=== PATIENT | female | born 1945 | race Caucasian/White ===

== ENCOUNTER → 2017-12-15 | Day surgery (SDC) | payer BC ==
[2017-12-11 11:03] VITALS: Ht 151.1 cm; Wt 56.8 kg
[~2017-12-15] VITALS: Ht 151.1 cm; Wt 56.8 kg
[~2017-12-15] MED LIST: 500ML BSS 0.3ML EPI 1:1000PF IRRIG ONE; ACETAMINOPHEN 325 MG TAB PO PRN; AMVISC PLUS 0.8ML SYRINGE INT OCU ONE; ATROPINE SULFATE 0.1 MG/ML 5ML SYR IV PRN; BSS FLUSH ONE; CALCTAB7 PO; EpHEDrine SULFATE INJ 50 MG/ML AMP IV PRN; EpINEphrine INJ 1MG/ML AMP 1 MG/ML AMP ONE; FLUO10CA48 PO; FSMD/70 PO; LACTATED RINGER'S 1000ML 500 ML IV SCH; LIDOCAINE 3.5% OPH GEL PER APPLICATION CHARGE ONE; LIDOCAINE HCL 1% MPF 2 ML VIAL ONE; MIDAZOLAM HCL 1 MG/ML 2ML VIAL ONE; MULT-506 PO; NAPR550T61 PO; OCUCOAT 1 ML SOLN IO ONE; POVIDONE-IODINE OP SOLN 30 ML BTL ONE; PROPARACAINE 0.5% OP SOLN PER DROP CHARGE OPR SCH; SIMV40TA2 PO; TOBRAMYCIN/DEXAMETHASONE OPH OINT PER APPLN CHARGE ONE
[2017-12-15] MEDS: PHENYLEPHRINE HCL 2.5% OP SOLN PER DROP CHARGE OPR SCH ×2 (09:25→09:34)
[2017-12-15] MEDS: TROPICAMIDE 1% OP SOLN PER DROP CHARGE OPR SCH ×2 (09:26→09:35)
[2017-12-15] MEDS: CYCLOPENTOLATE HCL 1% OP SOLN PER DROP CHARGE OPR SCH ×2 (09:27→09:36)
[2017-12-15] MEDS: KETOROLAC 0.5% OP SOLN PER DROP CHARGE OPR SCH ×2 (09:28→09:37)
[2017-12-15] MEDS: GATIFLOXACIN OP SOLN PER DROP CHARGE OPR SCH ×2 (09:30→09:42)
--- NOTE | 2017-12-15 09:45 | History & Physical Bridge - [place] ---
H&P Re-Evaluation Bridge Note: I have examined the patient, reviewed the History & Physical and in the interval since the performance of the History & Physical I have noted the following changes of clinical significance: Diagnosis: Right Cataract Procedure: Right Cataract Removal with Lens Implant No changes noted
--- NOTE | 2017-12-15 10:23 | [facility] Operative Report ---
Operative Report Date of Service Dec 15, 2017. Operative Report 1. PREOPERATIVE DIAGNOSIS: Cataract of the right eye. 2. POSTOPERATIVE DIAGNOSIS: Same. 3. PROCEDURE: Phacoemulsification with intraocular lens implantation of the right eye. SURGEON: Dr. Jose Jay. ANESTHESIA: Topical Lidocaine gel, 1% Non- Preserved intracameral Lidocaine, and monitored intravenous sedation. INDICATIONS FOR THE PROCEDURE: The patient is a 71 - year-old female with a history of cataract of the right eye causing significant visual impairment. The details of the proposed procedure were explained to the patient who asked appropriate questions and following discussion of all risks, benefits and alternatives agreed to have the procedure done. 4. OPERATION AND FINDINGS: DESCRIPTION OF PROCEDURE: After informed consent was obtained, the patient was brought to the Operating Room at the [facility]. The patient was placed in a supine position and then the right eye was prepped and draped in the usual sterile fashion for intraocular surgery. A drop of topical Lidocaine gel was placed in the operative eye. A wire lid speculum was then placed in the fornices. A corneal paracentesis was then created temporally. The Non-Preserved Lidocaine was then instilled into the anterior chamber. The anterior chamber was then pressurized with viscoelastic. A 2.0 mm clear corneal incision was then created temporally. A cystotome was inserted into the anterior chamber and used to create a tear in the anterior lens capsule. This capsular tear was then used to create a small flap and the flap was dragged in a counterclockwise direction in order to create a continuous curvilinear capsulorrhexis. Hydrodissection was accomplished with balanced salt solution. Phacoemulsification of the lens nucleus was then performed in a standard [id number] technique. The phaco time was 16 seconds with an average power of 13 %. The remaining cortical material was removed using irrigation aspiration. The capsular bag was then filled with viscoelastic. A [employer] MI60L +19.5 diopters lens was then loaded into the injector and injected into the capsular bag. The remaining viscoelastic was removed with the irrigation aspiration handpiece. The wound was hydrated and then checked and found to be watertight. The intraocular pressure was checked and found to be adequate. The wire lid speculum was removed and the patient's face was cleaned and dried. TobraDex ointment was placed in the inferior fornix. The patient was discharged to the Recovery Room having tolerated the procedure well. There were no complications. The patient will be seen tomorrow in the office for follow-up. I attest to the content of the Intraoperative Record and any orders documented therein. Any exceptions are noted below.
--- NOTE | 2017-12-15 10:23 | Discharge Instructions-SurgCtr ---
Discharge Instructions Date of Service Dec 15, 2017. Visit Reason for Visit: Cataract Right Eye Discharge Discharge Diagnosis / Problem: cataract Discharge Goals Goal(s): Improve function Activity Recommendations Activity Limitations: per Instructions/Follow-up section Anesthesia . Post Anesthesia Instructions: If you have had General Anesthesia or IV Sedation: * Do not drive today. * Resume driving when surgeon permits. * Do not make important decisions or sign legal documents today. * Call surgeon for: 1. Temperature elevations greater than 101 degrees F. 2. Uncontrollable pain. 3. Excessive bleeding. 4. Persistent nausea and vomiting. 5. Medication intolerance (nausea, vomiting or rash). * For nausea and vomiting use only clear liquids such as: tea, soda, bouillon until nausea subsides, then gradually increase diet as tolerated. * If you have any concerns or questions, call your surgeon's office. If physician is unavailable and it is an emergency, call 911 or go to the nearest emergency room. . Diet Recommendations Home Diet: resume previous diet Procedures Procedures Performed: Right Cataract Phacoemulsification With Intraocular Lens Implant Pending Studies Studies pending at discharge: no Medical Emergencies . Who to Call and When: Medical Emergencies: If at any time you feel your situation is an emergency, please call 911 immediately. . Non-Emergent Contact Non-Emergency issues call your: [facility] . . "Provider Documentation" section prepared by Jose Jay. .
[2017-12-15 10:33] VITALS: TEMP 36
[2017-12-15 10:44] VITALS: BP 126/73; PULSE 72; O2SAT 94
--- NOTE | 2017-12-15 10:55 | Anesthesia Progress Nt - [facility] ---
Anesthesia Post Op Note Date & Time Dec 15, 2017 at 10:54 Vital Signs Pain Intensity: 0 Vital Signs Past 12 Hours Date Time Temp Pulse Resp B/P (MAP) Pulse Ox O2 Delivery O2 Flow Rate FiO2 12/15/17 10:44 72 18 126/73 (90) 94 Room Air 12/15/17 10:33 36 69 16 111/73 (86) 94 Room Air 12/15/17 08:58 36.7 73 16 137/79 (98) 95 Room Air Notes Mental Status: alert / awake / arousable, participated in evaluation Pt Amnestic to Procedure: Yes Nausea / Vomiting: adequately controlled Pain: adequately controlled Airway Patency, RR, SpO2: stable & adequate BP & HR: stable & adequate Hydration State: stable & adequate Anesthetic Complications: no major complications apparent
== END | disposition home or self-care (01) ==
LOC: X.SURG 08:39
PROVIDERS: ATTEND Ophthalmology
DX: H26.9 Unspecified cataract (principal); Z79.899 Other long term (current) drug therapy; M19.90 Unspecified osteoarthritis, unspecified site

== ENCOUNTER 2018-09-13 04:54 | Inpatient (IN) ==
--- NOTE | 2018-09-02 09:32 | PAT Medication Instructions ---
Medication Instructions Date of Service September 02, 2018 Home Medications alendronate 70 mg PO WK calcium carbonate-vitamin D3 1 tab PO QAM fexofenadine [Rita Allergy] 180 mg PO QAM fluoxetine 10 mg PO QAM multivitamin 1 cap PO QAM naproxen sodium 550 mg PO QAM simvastatin 40 mg PO PM Continue as directed alendronate 70 mg PO WK ASK your surgeon for instructions naproxen sodium 550 mg PO QAM DO NOT take the morning of surgery calcium carbonate-vitamin D3 1 tab PO QAM fexofenadine [Rita Allergy] 180 mg PO QAM multivitamin 1 cap PO QAM Take morning of surgery With a small sip of water, OTHERWISE NOTHING TO EAT OR DRINK AFTER MIDNIGHT: fluoxetine 10 mg PO QAM Take evening before surgery simvastatin 40 mg PO PM Insulin Dependent Diabetic Patients * Test your blood sugar the morning of surgery * If Blood Sugar is GREATER THAN 150, take HALF of your regular dose of: * If Blood Sugar is LESS THAN 150, DO NOT TAKE ANY: Other Notes If you have any questions please call us at [phone] or [phone] or [phone] or [phone]
--- NOTE | 2018-09-02 10:52 | Anesthesiology Consultation ---
Date of Service September 02, 2018 Assessment & Plan (1) Encounter for pre-operative examination: Chart Review Chart Review: Patient seen in Pre Admission Testing Consults Requested medical (Dr. Adela Garcia (08/27)) Patient was seen by PCP on 08/27 for preoperative evaluation. Per note from that visit, "Patient is medically cleared pending PAT EKG, labs 09/02/2018". Labs and EKG from this visit are normal. Teaching & Discussion Pre-Anesthesia Teaching/Discussion Notes: Instructed NPO after midnight before surgery, except medications with 15 cc of water. Medication instructions provided according to the PAT guidelines. History Surgery Operation Date: 09/13/18 07:00 Proposed Procedures p Right Anterior Total Hip Arthroplasty - Raoul Taylor, Height/Weight Height: 4 ft 11 in Weight: 55.6 kg Allergies Allergy/AdvReac Type Severity Reaction Status Date / Time No Known Allergies Allergy Verified 08/27/18 13:45 Medications Home Medications Medication Instructions Recorded Confirmed Last Taken alendronate 70 mg PO WK 08/27/18 08/27/18 Unknown calcium carbonate-vitamin D3 1 tab PO QAM 08/27/18 08/27/18 Unknown [Calcium 500 + D] fexofenadine [Rita Allergy] 180 mg PO QAM 08/27/18 08/27/18 Unknown fluoxetine 10 mg PO QAM 08/27/18 08/27/18 Unknown multivitamin 1 cap PO QAM 08/27/18 08/27/18 Unknown naproxen sodium 550 mg PO QAM 08/27/18 08/27/18 Unknown simvastatin 40 mg PO PM 08/27/18 08/27/18 Unknown Past Medical History Medical History Anxiety Depression History of skin cancer Basal Cell - Lip Hyperlipidemia Osteoarthritis Prediabetes Exercise / Class Metabolic Activity III < 4 Walking/Shop/Light housework (Limited due to hip pain. Can slowly climb FOS 5-6 times per day, denies CP or SOB. ) Past Surgical History Surgical History History of carpal tunnel release RT History of cataract extraction with lens replacement B/L History of colonoscopy Hx of hemorrhoidectomy Past Anesthesia History No Hx of Anesthesia Complications and No Family Hx of Anesthesia Complications History of PONV No Hx of PONV and No Hx of Motion Sickness Social History Smoking Status: Never smoker Smoking cigarettes per day: 0 Do You Dip or Chew Tobacco: No Hx Alcohol Use: No Alcohol Intake Frequency Comment: 0 Hx Substance Use: No substance use type: does not use Review of Systems Patient denies chest pain, shortness of breath, dyspnea on exertion, reflux, cough, wheezing, palpitations. +Joint Pain (Hip, Neck) Physical Exam Vital Signs BP: 137/79 P: 70 R: 18 T: 97.9 SPO2: 95% on RA ENMT Thyromental Distance: < 3.5 Finger Breadths (3) Mallampati Class: I Neck normal visual inspection and trachea midline; neck extension not limited Respiratory normal respiratory effort Auscultation: lungs clear to auscultation bilaterally Cardiovascular Rate/Rhythm: regular rate and regular rhythm Heart Sounds: no murmur Vessels: no carotid bruit Neurologic moves all extremities Psychiatric Orientation: alert and oriented x 3 Testing Electrocardiogram Date: 09/02/18 Findings: + NSR @ (68) Sinus rhythm with premature atrial complexes Chest X-Ray Date: 09/02/18 Findings: + NAD FINDINGS: The bones soft tissues and hemidiaphragms are normal. The cardiomediastinal silhouette is normal. The lungs are clear. The pulmonary vasculature is normal. IMPRESSION: Negative chest. Echocardiogram Date: 08/08/15 EF: 60-64% LV Function: normal RWMA: + none Valvular Disease: + MR (mild) The examination is adequate to evaluate the referral indication. The left ventricular cavity size is normal. The LV wall thickness is normal. There is isolated basal septal hypertrophy with maximal thickness of 1.4 cm. The left ventricular wall motion is normal. The qualitative LV EF is 60-64% The mitral valve leaflets thickness is mildly increased. There is mild systolic bowing of the posterior mitral valve leaflet without prolapse. Mild mitral regurgitation is present. Mild tricuspid regurgitation is present. There is no evidence of pulmonary hypertension. Laboratory Results 09/02/18 11:15 09/02/18 11:15 Blood Type B Negative 09/02/18 11:15 Antibody Screen NEGATIVE 09/02/18 11:15 PT 10.4 Seconds (9.0-12.0) 09/02/18 11:15 INR 1.0 (0.9-1.1) 09/02/18 11:15 APTT 25.1 Seconds (21.0-31.0) 09/02/18 11:15 Hemoglobin A1c 5.9 % (4.5-5.6) H 09/02/18 11:15 Urine Color Yellow 09/02/18 Unknown Urine Appearance Clear (Clear) 09/02/18 Unknown Urine pH 5.0 (4.5-7.5) 09/02/18 Unknown Ur Specific [place] 1.017 (1.000-1.030) 09/02/18 Unknown Urine Protein Negative (Negative) 09/02/18 Unknown Urine Glucose (UA) Negative (Negative) 09/02/18 Unknown Urine Ketones Negative (Negative) 09/02/18 Unknown Urine Nitrite Negative (Negative) 09/02/18 Unknown Ur Leukocyte Esterase Negative (Negative) 09/02/18 Unknown 09/02/18 Unknown Urine Culture - Preliminary Urine,Clean Catch No growth - Less than 1,000 colonies/mL, Final report to follow.
[2018-09-02 11:53] LABS: Basophils # (auto) 0.05 K/uL (0-0.2); Basophils % (auto) 0.7 %; Eosinophils # (auto) 0.18 K/uL (0-0.5); Eosinophils % (auto) 2.4 %; Hematocrit (blood only) 44.2 % (37-47); Immature Granulocytes # (auto) 0.01 K/uL (0.00-0.02); Immature Granulocytes % (auto) 0.1 %; Lymphocytes # (auto) 1.77 K/uL (1.2-3.4); Lymphocytes % (auto) 23.1 %; Mean Corpuscular Hgb Conc 33.9 g/dL (32-36); Mean Corpuscular Volume 94.4 fL (80-100); Mean Platelet Volume 12.6 fL (7.4-10.4); Monocytes # (auto) 0.43 K/uL (0.11-0.59); Monocytes % (auto) 5.6 %; Neutrophils # (auto) 5.21 K/uL (1.4-6.5); Neutrophils % (auto) 68.1 %; Platelet Count 178 K/uL (130-400); RDW Standard Deviation 44.7 fL (36.4-46.3); Red Blood Count 4.68 M/uL (4.2-5.4); White Blood Count 7.65 K/uL (4.8-10.8)
[2018-09-02 12:22] LABS: Appearance Urine Clear (Clear); Bilirubin Urine Negative (Negative); Blood Urine Negative (Negative); Color Urine Yellow; Glucose Urine UA Negative (Negative); Ketones Urine Negative (Negative); Leukocyte Esterase Urine Negative (Negative); Nitrite Urine Negative (Negative); Protein Urine Negative (Negative); Specific Gravity Urine 1.017 (1.000-1.030); Urobilinogen Urine Negative (Negative)
[2018-09-02 12:25] LABS: Partial Thromboplastin Ratio 0.9; Partial Thromboplastin Time 25.1 Seconds (21.0-31.0); Prothrombin Time 10.4 Seconds (9.0-12.0)
--- NOTE | 2018-09-02 12:31 | XRay Report ---
XR chest Pre-admission PA/Lat CLINICAL HISTORY: pat preoperative COMPARISON STUDY: No previous studies for comparison. FINDINGS: The bones soft tissues and hemidiaphragms are normal. The cardiomediastinal silhouette is n ormal. The lungs are clear. The pulmonary vasculature is normal. IMPRESSION: Negative chest. The above report was generated using voice recognition software. It may contain grammatical, syntax or spelling errors. Electronically signed by: Isaías Rowland M.D. 09/02/2018 12:29 PM
[2018-09-02 12:46] LABS: Estimated Average Glucose 123 mg/dl; Hemoglobin A1C 5.9 % (4.5-5.6)
[2018-09-02 13:11] LABS: Albumin Level 2.9 gm/dl (3.4-5.0); BUN Creatinine Ratio 27.3 (10-20); Calcium 8.7 mg/dl (8.5-10.1); Est GFR (Non-African American) 78.5; Potassium 4.4 mmol/L (3.5-5.1)
--- NOTE | 2018-09-12 22:21 | History & Physical Report ---
Date of Service September 12, 2018 Assessment & Plan (1) Degenerative joint disease (DJD) of hip: I have indicated the patient for right anterior total hip replacement. The risks, benefits and complications of surgery were explained to the patient which include but not limited to infection, acute blood loss, DVT/PE, injury to nerves, vessels, bone, soft tissue, arthrofibrosis, chronic pain, failure of the prosthesis, hip dislocation, leg length discrepancy, need for additional surgery, cardiac and pulmonary events and . The patient wished to proceed with surgery and informed consent was obtained at this time. We will plan for ASA BID post-operatively for DVT prophylaxis. Upon discharge the patient will be discharged home with home health services. Appropriate clearances by PCP were obtained. History of Present Illness Chief Complaint: Right hip pain/djd Primary Care Provider: Haily Garcia DO The patient is a 72 year old female who presents with complaints of severe right hip pain and DJD. The patient has failed outpatient conservative treatments to this point which included NSAIDS, IA corticosteroid injection and a home exercise/walking program. The patient's pain and limited function have progressed to the point where they severely hinder their activities of daily living and they no longer tolerate exercise programs. They are requesting to proceed with total hip replacement surgery. Allergies Allergy/AdvReac Type Severity Reaction Status Date / Time No Known Allergies Allergy Verified 09/13/18 05:50 Home Medications Home Medications Medication Instructions Recorded Confirmed Type alendronate 70 mg PO WK 08/27/18 09/13/18 History calcium carbonate-vitamin D3 1 tab PO QAM 08/27/18 09/13/18 History [Calcium 500 + D] fexofenadine [Rita Allergy] 180 mg PO QAM 08/27/18 09/13/18 History fluoxetine 10 mg PO QAM 08/27/18 09/13/18 History multivitamin 1 cap PO QAM 08/27/18 09/13/18 History naproxen sodium 550 mg PO QAM 08/27/18 09/13/18 History simvastatin 40 mg PO PM 08/27/18 09/13/18 History Past Med/Surg History Medical History Anxiety Depression History of skin cancer Basal Cell - Lip Hyperlipidemia Osteoarthritis Prediabetes Surgical History History of carpal tunnel release RT History of cataract extraction with lens replacement B/L History of colonoscopy Hx of hemorrhoidectomy Social History Preferred Language: Frisian Communication Ability: Effective Sdc Teacher Required: No Beliefs That Will Affect Care: None Current Living Situation: Spouse Other Information That Helps Us Care for You: No Feels Safe at Home: Yes Safety Concerns: Feels Safe At This Time Smoking Status: Never smoker Cigarettes Per Day: 0 Do You Dip or Chew Tobacco: No Second Hand Exposure: No Tobacco Cessation Education Requested by Patient: No Hx Alcohol Use: No Hx Substance Use: No Review of Systems Review of Systems: All systems reviewed & are unremarkable except as noted in HPI & below Constitutional: as per Subjective / HPI Physical Exam Physical Exam: RLE NVSI +EHL/FHL/TA/GS SILT grossly, +2 DP pulse, compartments soft NT, limited painful ROM of the hip, antalgic gait. Constitutional: WD/WN, vitals as above Eyes: PERRL, conjunctivae normal, anicteric sclerae ENMT: external ear and nose normal, oropharynx normal Neck: trachea midline, no thyromegaly Respiratory: normal respiratory effort, lungs clear to auscultation Cardiovascular: RRR, no murmur, no edema Gastrointestinal (Abdomen): normal bowel sounds, soft, nontender, no hepatosplenomegaly Musculoskeletal: no cyanosis or clubbing, extremities motor strength 5/5 Skin: no rashes, warm and dry Neurologic: patellar DTR's 2+ bilat, sensation intact Psychiatric: A+Ox3, euthymic affect Lymphatic: no cervical or axillary lymphadenopathy Results & Data Diagnostic Findings Multiple views of the hip demonstrates severe DJD with complete loss of the joint space. +osteophytes, +sclerosis, +subchondral cysts.
[2018-09-13] MEDS ORDERED: ACETAMINOPHEN 500 MG TAB PO SCH (06:00)
[2018-09-13] MEDS ORDERED: ROPIVACAINE 0.5% HCL/PF 150 MG, BUPIVACAINE 0.5% MPF 30 ML, EPINEPHrine 30MG/30ML (OR U... INFIL SCH (06:00)
[2018-09-13] MEDS ORDERED: GABAPENTIN 300 MG PO SCH (06:00)
[2018-09-13] MEDS ORDERED: TRANEXAMIC ACID 1,000 MG **IV Pre-op IV SCH (06:00)
[2018-09-13] MEDS ORDERED: dexAMETHasone 4 MG TAB PO SCH (06:00)
[2018-09-13] MEDS ORDERED: LR 500ML BOLUS, THEN 15ML/HR IV SCH (06:00)
[2018-09-13] MEDS ORDERED: FAMOTIDINE 20 MG TAB PO SCH (06:00)
[2018-09-13] MEDS ORDERED: CEFAZOLIN 1000MG 1,000 MG/7.5 ML SYR IV SCH (06:00)
[2018-09-13] MEDS ORDERED: CeleBREX 200 MG CAP PO SCH (06:00)
[2018-09-13] MEDS ORDERED: BUPIVACAINE 0.5 % 5 MG/1 ML PF 10ML VIAL ONE (06:23)
[2018-09-13] MEDS ORDERED: TRANEXAMIC ACID 1,000 MG **IV Intra-op IV SCH (06:30)
[2018-09-13] MEDS ORDERED: fentaNYL citrate 100 MCG/2 ML VIAL IV PRN (06:34)
[2018-09-13] MEDS ORDERED: ATROPINE SULFATE 0.1 MG/ML 10ML SYR IV PRN (06:34)
[2018-09-13] MEDS ORDERED: ePHEDrine sulfate 50 MG/ML AMP IV PRN (06:34)
[2018-09-13] MEDS ORDERED: ONDANSETRON INJ 2 MG/ML 2 ML VIAL IV PRN ×2 (06:34→10:18)
[2018-09-13] MEDS ORDERED: POVIDONE-IODINE OP SOLN 30 ML BTL ONE (06:36)
[2018-09-13] MEDS ORDERED: BACITRACIN INJ 50,000 UNIT VIAL ONE (06:36)
[2018-09-13] MEDS ORDERED: ORTHO JOINT ANESTHETIC ONE (06:36)
--- NOTE | 2018-09-13 06:42 | History & Physical Bridge Note ---
Date of Service September 13, 2018 History & Physical Bridge Note I have examined the patient, reviewed the History & Physical and in the interval since the performance of the History & Physical I have noted the following changes of clinical significance: no changes noted
[2018-09-13] MEDS ORDERED: MIDAZOLAM HCL 1 MG/ML 2ML VIAL ONE (06:44)
[2018-09-13] MEDS ORDERED: PROPOFOL IV EMULSION 10 MG/ML 20 ML VIAL IV ONE (08:01)
[2018-09-13] MEDS ORDERED: ePHEDrine sulfate 50 MG/ML SYR ONE (08:03)
[2018-09-13] MEDS ORDERED: PHENYLEPHRINE 100MCG/ML 5ML SYR ONE (08:18)
--- NOTE | 2018-09-13 08:31 | Post Operative Brief Note ---
Immediate Post Op Note v1 Date of Surgery September 13, 2018 Pre & Post Diagnosis Operation Date: 09/13/18 07:00 Pre-Op Diagnosis: Unilateral Primary Osteoarthritis, Right Hip Post-Op Diagnosis: Unilateral Primary Osteoarthritis, Right Hip Procedure Operation Date: 09/13/18 07:00 Actual Procedures p Right Anterior Total Hip Arthroplasty, Uncemented(Right) - Raoul Taylor DO Surgeon Raoul Taylor DO [employer] Officer Aly Fan Estimated Blood Loss 85 Findings Consistent with Post-Op Diagnosis Fluids 1300 cc LR Specimens femoral head Drains Hemovac Drain Anesthesia Type Spinal MAC Complications none Disposition Disposition: Recovery Room Overlapping Procedure I was present for: the critical portions of procedure. I was immediately available: during the entire case. Back up surgeon: was not required during procedure.
--- NOTE | 2018-09-13 08:44 | Operative Report ---
Post Operative Report Pre & Post Diagnosis Operation Date: 09/13/18 07:00 Pre-Op Diagnosis: Unilateral Primary Osteoarthritis, Right Hip Post-Op Diagnosis: Unilateral Primary Osteoarthritis, Right Hip Procedure Operation Date: 09/13/18 07:00 Actual Procedures p Right Anterior Total Hip Arthroplasty, Uncemented(Right) - Raoul Taylor DO Surgeon Raoul Taylor DO Contract Designer Aly Fan Estimated Blood Loss 85 Findings Consistent with Post-Op Diagnosis Specimens Femoral head Anesthesia Type Spinal MAC Complications none Disposition Disposition: Recovery Room Indications The patient is a 72-year-old female who presents with severe progressive right hip DJD who has failed outpatient conservative treatments. I indicated the patient for a anterior total hip replacement and the risks and benefits were explained in detail which include but not limited to infection, bleeding, blood clot, damage to surrounding bone, nerves, vessels, soft tissue, hip dislocation, failure of the prosthesis, leg length discrepancy, need for additional surgery and . The patient agreed to proceed with replacement of the hip and informed consent was obtained. Appropriate clearances were obtained. Description of Procedure COMPONENTS USED: [employer] hip system: Acetabulum size 50, femur size 6 high offset, femoral head 32+0, liner 3250, acetabular screw 251. DESCRIPTION OF PROCEDURE: Following satisfactory spinal anesthesia, the patient was placed supine on the OR table. The left leg was placed in the well leg damon and the right leg in the traction device. The right leg was prepared with ChloraPrep and draped sterilely. A surgical timeout was performed, patient identified in site sabino confirmed. Appropriate antibiotics were given. A standard anterior approach in the interval between the sartorius and tensor muscles was performed. Dissection was carried down through subcutaneous tissues. Electrocautery was utilized for hemostasis. Circumflex femoral ve ssels were identified, tied and ligated. The anterior capsular fat pad was removed and the capsulotomy was performed revealing the arthritic femoral neck and head. A femoral neck cut was made with reciprocating saw and the bone fragments removed. The acetabular self-retraining retractor was placed. Acetabular reaming was completed under fluoroscopic guidance, a 50 shell was impacted into an anatomic position and secured with a dome screw. Local anesthetic was placed and following irrigation, the polyethylene liner was placed. The femur was placed into position of external rotation, extension and adduction. Femoral canal was prepared up to the size 6 high offset. Trial reduction with a +0 neck length head showed good soft tissue tension, leg lengths restored, and good fit and fill of the proximal canal using fluoroscopic landmarks. The hip was dislocated. The trial component was removed. The final implant was placed. The hip was irrigated with sterile saline soluation and reduced. A Betadine soak was performed. After 3 minutes, the hip was once more irrigated with copious sterile saline solution with bacitracin. Cherelle-incisional soft tissue was injected utilizing [place] [employer] which includes a combination of Ropivicaine 0.5% 150mg, Bupivicaine 0.5%/Epinephrine 1:200,000 30ml, Toradol 30mg, Dexamethasone 4mg, Ketamine 10mg, Clonidine 100mcg and NSS 30ml solution. The capsule was then closed with 1-0 Vicryl interrupted figure of eight sutures. The fascia was closed with a running suture of #1 Vicryl, the subcutaneous tissues with 2-0 Vicryl and the skin with a running subcuticular stitch of 3-0 V-Loc. Dermabond prineo and a dry dressing, Danni were applied. The patient tolerated the procedure well and was transported to PACU in stable condition. Due to the complex nature of the procedure, the entire surgery was performed with the operational assistance of Aly Fan PA-C. The drug safety assistant, under direct supervision, was involved in the actual performance of all aspects of the surgical procedure including patient positioning, hemostasis, tissue retraction, instrument management and wound closure. I attest to the content of the Intraoperative Record and any orders documented therein. Any exceptions are noted below.
--- NOTE | 2018-09-13 08:55 | Fluoroscopy Report ---
FL hip RT 1V CLINICAL HISTORY: RT ANTERIOR HIP COMPARISON STUDY: None. FLUOROSCOPY TIME: 46 seconds. FLUOROSCOPIC IMAGES: 2. FINDINGS: These images demonstrate anatomic alignment of a total right hip arthroplasty. There is no fracture or unexpected radiopaque foreign body. Acetabular screw is noted. IMPRESSION: Expected findings following total right hip arthroplasty. Electronically signed by: Fernando Beaver M.D. 09/13/2018 8:54 AM
--- NOTE | 2018-09-13 09:23 | XRay Report ---
XR hip 1V RT w pelvis CLINICAL HISTORY: IN PACU - A/P PELVIS and LATERAL HIP COMPARISON: None. DISCUSSION: Anatomic alignment post total right hip arthroplasty. Good contact between prosthetic and underlying bone. Expected postoperative soft tissue change. IMPRESSION: Anatomic alignment post total right hip arthroplasty. The above report was generated using voice recognition software. It may contain grammatical, syntax or spelling errors. Electronically signed by: Isaías Rowland M.D. 09/13/2018 9:22 AM
--- NOTE | 2018-09-13 09:51 | Anesthesiology Progress Note ---
Date of Service September 13, 2018 Anesthesia Post Procedure Vital Signs Vital Signs: Temp Pulse Pulse Resp BP Pulse Ox 09/13/18 09:45 97.2 F L 69 12 118/66 98 09/13/18 09:35 66 17 124/65 99 09/13/18 09:25 69 18 125/63 98 09/13/18 09:15 65 15 125/67 99 09/13/18 09:05 77 13 97/51 L 99 09/13/18 08:57 97.2 F L 69 17 98/56 L 97 09/13/18 05:40 97.5 F L 72 18 139/72 96 Pain Intensity Right Hip: Pain Intensity: 0 Transfer of Care Handoff Completed per policy Notes Mental Status: alert / awake / arousable and participated in evaluation Patient Amnestic to Procedure: Yes Nausea / Vomiting: adequately controlled Pain: adequately controlled Airway Patency, RR, SpO2: stable & adequate BP & HR: stable & adequate Hydration State: stable & adequate Neuraxial Anesthesia: was administered and sensory block is resolving Anesthetic Complications: no major complications apparent and Pt Satisfied with anesthetic care
[2018-09-13] MEDS ORDERED: MAGNESIUM HYDROXIDE SUSP 30 ML UDC PO PRN (10:18)
[2018-09-13] MEDS ORDERED: NALOXONE HCL 0.4 MG/1 ML VIAL/CARP IV PRN (10:18)
[2018-09-13] MEDS ORDERED: HYDROmorphone INJ 0.5 MG/0.5 ML SYR IV PRN (10:18)
[2018-09-13] MEDS ORDERED: BISACODYL 10 MG SUPP PR PRN (10:18)
[2018-09-13] MEDS ORDERED: METOCLOPRAMIDE HCL INJ 5 MG/ML 2 ML VIAL IV PRN (10:18)
--- NOTE | 2018-09-13 11:59 | Orthopedic Progress Note ---
Date of Service September 13, 2018 Assessment & Plan (1) Degenerative joint disease (DJD) of hip: Status post right anterior total hip arthroplasty -Ancef x24 -DVT prophylaxis: SCDs, teds, ASA twice daily -Weight-bear as tolerated right lower extremity -PT/OT -Postoperative x-ray demonstrates a well aligned well fixed orthopedic prosthesis without evidence of fracture or dislocation -A.m. labs -DC planning: Home with home health Subjective Post Operative Progress Note Patient seen sitting up in bed, comfortable, denies complaints, pain well controlled, no acute issues. Review of Systems Review of Systems: All systems reviewed & are unremarkable except as noted in HPI & below Constitutional: as per Subjective / HPI Physical Exam Physical Exam: Right lower extremity physical exam is limited secondary to spinal anesthesia. +2 dorsalis pedis pulse, compartment soft nontender, dressing clean dry and intact. Constitutional: WD/WN, vitals as above Results & Data Vital Signs (Past 12 Hours) Vital Signs Temp Pulse Pulse Pulse Pulse Resp BP 09/13/18 11:34 36.5 C 78 18 121/66 09/13/18 10:40 77 18 122/76 09/13/18 10:10 36.4 C L 69 16 121/66 09/13/18 09:45 36.2 C L 69 12 118/66 09/13/18 09:35 66 17 124/65 09/13/18 09:25 69 18 125/63 09/13/18 09:15 65 15 125/67 09/13/18 09:05 77 13 97/51 L 09/13/18 08:57 36.2 C L 69 17 98/56 L 09/13/18 05:40 36.4 C L 72 18 139/72 Pulse Ox 09/13/18 11:34 98 09/13/18 10:40 09/13/18 10:10 98 09/13/18 09:45 98 09/13/18 09:35 99 09/13/18 09:25 98 09/13/18 09:15 99 09/13/18 09:05 99 09/13/18 08:57 97 09/13/18 05:40 96
[2018-09-13] MEDS: MULTIVITAMIN TAB PO SCH (12:16)
[2018-09-13] MEDS: FLUOXETINE HCL 10 MG CAP PO SCH (12:16)
[2018-09-13] MEDS: DOCUSATE SODIUM 100 MG CAP PO SCH ×2 (12:16→20:49)
[2018-09-13] MEDS: SODIUM CHLORIDE 0.9% 1000ML 1,000 ML IV SCH ×2 (12:16→21:56)
[2018-09-13] MEDS: KETOROLAC TROMETHAMINE 15 MG/ML VIAL IV SCH ×3 (12:17→22:02)
[2018-09-13] MEDS: CEFAZOLIN 1000MG 1,000 MG/7.5 ML SYR IV SCH ×2 (13:56→21:54)
[2018-09-13] MEDS: ACETAMINOPHEN 500 MG TAB PO SCH ×2 (13:56→20:49)
[2018-09-13] MEDS ORDERED: PNEUMOCOCCAL POLYSACCHARIDES 25 MCG/0.5 ML VIAL/SYR IM ONE (15:00)
[2018-09-13] MEDS ORDERED: PNEUMOCOCCAL ADMINISTRATION CHARGE ONE (15:00)
[2018-09-13] MEDS ORDERED: SIMVASTATIN 40 MG TAB PO SCH (21:00)
[2018-09-13] MEDS ORDERED: SENNA 8.6 MG TAB PO SCH (21:00)
[2018-09-13] MEDS: OXYCODONE HCL IR 5 MG TAB (IMMEDIATE RELEASE) PO PRN (23:56)
[2018-09-14] MEDS: KETOROLAC TROMETHAMINE 15 MG/ML VIAL IV SCH (04:47)
[2018-09-14] MEDS: ACETAMINOPHEN 500 MG TAB PO SCH ×2 (05:32→13:21)
[2018-09-14 05:37] LABS: Basophils # (auto) 0.01 K/uL (0-0.2); Basophils % (auto) 0.1 %; Eosinophils # (auto) 0.02 K/uL (0-0.5); Eosinophils % (auto) 0.1 %; Hematocrit (blood only) 32.5 % (37-47); Hemoglobin 11.2 g/dL (12.0-16.0); Immature Granulocytes # (auto) 0.04 K/uL (0.00-0.02); Immature Granulocytes % (auto) 0.3 %; Lymphocytes # (auto) 1.55 K/uL (1.2-3.4); Lymphocytes % (auto) 10.2 %; Mean Corpuscular Hgb Conc 34.5 g/dL (32-36); Mean Corpuscular Volume 93.1 fL (80-100); Mean Platelet Volume 11.9 fL (7.4-10.4); Monocytes # (auto) 1.29 K/uL (0.11-0.59); Monocytes % (auto) 8.5 %; Neutrophils # (auto) 12.26 K/uL (1.4-6.5); Neutrophils % (auto) 80.8 %; Platelet Count 141 K/uL (130-400); RDW Coefficient of Variation 13.1 % (11.5-14.5); RDW Standard Deviation 44.3 fL (36.4-46.3); Red Blood Count 3.49 M/uL (4.2-5.4); White Blood Count 15.17 K/uL (4.8-10.8)
[2018-09-14 06:16] LABS: Calcium 7.4 mg/dl (8.5-10.1); Creatinine Clr Calc Pharmacy 52.6 ml/min; Est GFR (African American) 95.6; Est GFR (Non-African American) 82.5; Potassium 3.8 mmol/L (3.5-5.1)
[2018-09-14] MEDS ORDERED: ALENDRONATE SODIUM 70 MG TAB PO SCH (06:30)
--- NOTE | 2018-09-14 07:40 | Anesthesiology Progress Note ---
Date of Service September 14, 2018 Anesthesia Post Procedure Vital Signs Vital Signs: Temp Pulse Pulse Pulse Pulse Resp BP 09/14/18 06:55 36.6 C 67 18 130/72 09/14/18 04:05 36.8 C 70 16 124/70 09/13/18 23:25 36.8 C 75 16 120/61 09/13/18 19:25 36.4 C L 90 16 139/73 09/13/18 15:25 36.9 C 88 18 131/66 09/13/18 15:12 36.4 C L 74 18 138/69 09/13/18 12:59 37.0 C 88 18 126/71 09/13/18 11:34 36.5 C 78 18 121/66 09/13/18 10:40 77 18 122/76 09/13/18 10:10 36.4 C L 69 16 121/66 09/13/18 09:45 36.2 C L 69 12 118/66 09/13/18 09:35 66 17 124/65 09/13/18 09:25 69 18 125/63 09/13/18 09:15 65 15 125/67 09/13/18 09:05 77 13 97/51 L 09/13/18 08:57 36.2 C L 69 17 98/56 L Pulse Ox 09/14/18 06:55 97 09/14/18 04:05 94 09/13/18 23:25 93 09/13/18 19:25 93 09/13/18 15:25 93 09/13/18 15:12 93 09/13/18 12:59 95 09/13/18 11:34 98 09/13/18 10:40 09/13/18 10:10 98 09/13/18 09:45 98 09/13/18 09:35 99 09/13/18 09:25 98 09/13/18 09:15 99 09/13/18 09:05 99 09/13/18 08:57 97 Pain Intensity Right Hip: Pain Intensity: 4 Notes Mental Status: alert / awake / arousable and participated in evaluation Patient Amnestic to Procedure: Yes Nausea / Vomiting: adequately controlled Pain: adequately controlled Airway Patency, RR, SpO2: stable & adequate BP & HR: stable & adequate Hydration State: stable & adequate Neuraxial Anesthesia: was administered and sensory block resolved Anesthetic Complications: no major complications apparent and Pt Satisfied with anesthetic care
--- NOTE | 2018-09-14 07:55 | Orthopedic Progress Note ---
Date of Service September 14, 2018 Assessment & Plan (1) Degenerative joint disease (DJD) of hip: Postop day 1 status post right anterior total hip arthroplasty -Ancef x24 -DVT prophylaxis: SCDs, teds, ASA twice daily -Weight-bear as tolerated right lower extremity -PT/OT -A.m. labs as noted above -DC planning: Home with home health Patient seen and examined, agree with above assessment in plan. Subjective Postop day 1 status post right anterior total hip arthroplasty. Patient was ambulating from the bathroom to her chair when I arrived in the room. She is ambulating independently with a walker. She states that she was having pain getting in out of the bed with her incision but otherwise the hip feels good. No pain with ambulation. She denies shortness of breath, chest pain, lightheadedness. No other complaints at this time. Review of Systems Review of Systems: All systems reviewed & are unremarkable except as noted in HPI & below Constitutional: as per Subjective / HPI Physical Exam Physical Exam: Prevena dressing is clean, dry, and intact. No overt drainage noted in the canister. Thigh has some swelling but is soft and nontender. Calves are soft and nontender. Neurovascular is intact. Toes are mobile. RLE NVSI +EHL/FHL/TA/GS SILT grossly, +2 DP pulse, compartments soft NT, dressing cdi. Constitutional: WD/WN, vitals as above Results & Data Vital Signs (Past 12 Hours) Vital Signs Temp Pulse Resp BP Pulse Ox 09/14/18 06:55 36.6 C 67 18 130/72 97 09/14/18 04:05 36.8 C 70 16 124/70 94 09/13/18 23:25 36.8 C 75 16 120/61 93 Laboratory Results Laboratory Results WBC 15.17 K/uL (4.8-10.8) H 09/14/18 05:15 RBC 3.49 M/uL (4.2-5.4) L 09/14/18 05:15 Hgb 11.2 g/dL (12.0-16.0) L 09/14/18 05:15 Hct 32.5 % (37-47) L 09/14/18 05:15 MCV 93.1 fL (80-100) 09/14/18 05:15 MCH 32.1 pg (25-34) 09/14/18 05:15 MCHC 34.5 g/dL (32-36) 09/14/18 05:15 RDW Std Deviation 44.3 fL (36.4-46.3) 09/14/18 05:15 RDW Coeff of Umu 13.1 % (11.5-14.5) 09/14/18 05:15 Plt Count 141 K/uL (130-400) 09/14/18 05:15 MPV 11.9 fL (7.4-10.4) H 09/14/18 05:15 Immature Gran % (Auto) 0.3 % 09/14/18 05:15 Neut % (Auto) 80.8 % 09/14/18 05:15 Lymph % (Auto) 10.2 % 09/14/18 05:15 Avery % (Auto) 8.5 % 09/14/18 05:15 Eos % (Auto) 0.1 % 09/14/18 05:15 Baso % (Auto) 0.1 % 09/14/18 05:15 Immature Gran # (Auto) 0.04 K/uL (0.00-0.02) H 09/14/18 05:15 Neut # (Auto) 12.26 K/uL (1.4-6.5) H 09/14/18 05:15 Lymph # (Auto) 1.55 K/uL (1.2-3.4) 09/14/18 05:15 Avery # (Auto) 1.29 K/uL (0.11-0.59) H 09/14/18 05:15 Eos # (Auto) 0.02 K/uL (0-0.5) 09/14/18 05:15 Baso # (Auto) 0.01 K/uL (0-0.2) 09/14/18 05:15 PT 10.4 Seconds (9.0-12.0) 09/02/18 11:15 INR 1.0 (0.9-1.1) 09/02/18 11:15 APTT 25.1 Seconds (21.0-31.0) 09/02/18 11:15 PTT Ratio 0.9 09/02/18 11:15 Sodium 141 mmol/L (136-145) 09/14/18 05:15 Potassium 3.8 mmol/L (3.5-5.1) 09/14/18 05:15 Chloride 109 mmol/L (98-107) H 09/14/18 05:15 Carbon Dioxide 27 mmol/L (21-32) 09/14/18 05:15 Anion Gap 5.0 (3-11) 09/14/18 05:15 BUN 15 mg/dl (7-18) 09/14/18 05:15 Creatinine 0.72 mg/dl (0.6-1.2) 09/14/18 05:15 Est Cr Clr Drug Dosing 52.6 ml/min 09/14/18 05:15 Est GFR ( Amer) 95.6 09/14/18 05:15 Est GFR (Non-Af Amer) 82.5 09/14/18 05:15 BUN/Creatinine Ratio 21.0 (10-20) H 09/14/18 05:15 Glucose 115 mg/dl (70-99) H 09/14/18 05:15 POC Glucose 121 (70-99) H 09/13/18 09:24 Estimat Average Glucose 123 mg/dl 09/02/18 11:15 Hemoglobin A1c 5.9 % (4.5-5.6) H 09/02/18 11:15 Calcium 7.4 mg/dl (8.5-10.1) L 09/14/18 05:15 Albumin 2.9 gm/dl (3.4-5.0) L 09/02/18 11:15 Urine Color Yellow 09/02/18 Unknown Urine Appearance Clear (Clear) 09/02/18 Unknown Urine pH 5.0 (4.5-7.5) 09/02/18 Unknown Ur Specific [place] 1.017 (1.000-1.030) 09/02/18 Unknown Urine Protein Negative (Negative) 09/02/18 Unknown Urine Glucose (UA) Negative (Negative) 09/02/18 Unknown Urine Ketones Negative (Negative) 09/02/18 Unknown Urine Blood Negative (Negative) 09/02/18 Unknown Urine Nitrite Negative (Negative) 09/02/18 Unknown Urine Bilirubin Negative (Negative) 09/02/18 Unknown Urine Urobilinogen Negative (Negative) 09/02/18 Unknown Ur Leukocyte Esterase Negative (Negative) 09/02/18 Unknown Blood Type B Negative 09/02/18 11:15 Antibody Screen NEGATIVE 09/02/18 11:15
[2018-09-14] MEDS: DOCUSATE SODIUM 100 MG CAP PO SCH (08:36)
[2018-09-14] MEDS: MULTIVITAMIN TAB PO SCH (08:36)
[2018-09-14] MEDS: FLUOXETINE HCL 10 MG CAP PO SCH (08:37)
[2018-09-14] MEDS: OXYCODONE HCL IR 5 MG TAB (IMMEDIATE RELEASE) PO PRN ×2 (08:40→13:21)
[2018-09-14] MEDS ORDERED: ASPIRIN 325 MG ECTAB PO SCH (09:00)
[2018-09-14] MEDS ORDERED: CeleBREX 200 MG CAP PO SCH (21:00)
--- NOTE | 2018-09-14 21:42 | Discharge Summary ---
Date of Service September 14, 2018 Admission HPI Per Admitting Provider The patient is a 72 year old female who presents with complaints of severe right hip pain and DJD. The patient has failed outpatient conservative treatments to this point which included NSAIDS, IA corticosteroid injection and a home exercise/walking program. The patient's pain and limited function have progressed to the point where they severely hinder their activities of daily living and they no longer tolerate exercise programs. They are requesting to proceed with total hip replacement surgery. Principal Diagnosis Right anterior total hip replacement Discharge Exam RLE NVSI +EHL/FHL/TA/GS SILT grossly, +2 DP pulse, compartments soft NT, dressing cdi. Constitutional WD/WN, vitals as above Eyes PERRL, conjunctivae normal, anicteric sclerae ENMT external ear and nose normal, oropharynx normal Neck trachea midline, no thyromegaly Respiratory normal respiratory effort, lungs clear to auscultation Cardiovascular RRR, no murmur, no edema Gastrointestinal (Abdomen) normal bowel sounds, soft, nontender, no hepatosplenomegaly Musculoskeletal no cyanosis or clubbing, extremities motor strength 5/5 Skin no rashes, warm and dry Neurologic patellar DTR's 2+ bilat, sensation intact Psychiatric A+Ox3, euthymic affect Lymphatic no cervical or axillary lymphadenopathy Discharge Data Allergies Allergy/AdvReac Type Severity Reaction Status Date / Time No Known Allergies Allergy Verified 09/13/18 05:50 Consultations 09/14/18 08:00 Consult Case Management - Discharge Planning Routine Procedures Performed Operation Date: 09/13/18 07:00 Actual Procedures p Right Anterior Total Hip Arthroplasty, Uncemented(Right) - Raoul Taylor DO Ordered Studies 09/13/18 07:00 FL fluoroscopy <1hr Routine FL hip RT 1V Routine Hospital Course (1) Degenerative joint disease (DJD) of hip: The patient is a 70 -year-old female who presents with long standing history of severe right hip DJD and failed outpatient conservative treatments including NSAIDs, bracing, injections and home walking/exercise program. The patient's symptoms have progressed to the point where it has been difficult to perform even normal activities of daily living. I indicated the patient for a right anterior total hip arthroplasty, the risks, benefits and complications of the procedure include but not limited to infection, bleeding, damage to bone, nerves, vessels, surrounding soft tissue, may develop blood clots, loss of function, leg length discrepancy, dislocation, failure of the components, loosening of the components, the need for additional surgery and . The patient wished to proceed with surgery at this time and informed consent was obtained. Hospital Course: On 09/13/18 the patient was taken to the operating room, adequate anesthesia administered and underwent a right anterior total hip arthroplasty. The patient tolerated the procedure well and was taken to the PACU in stable condition. Post-operatively the patient was started on a DVT ppx medication and given appropriate IV antibiotics. Consults were placed to physical therapy, occupational therapy and case management. On POD#1, the patient did well overnight and their pain was well controlled. Labs were drawn and the Hgb was 11.2. The patient progressed well with PT. Dressings were changed at this time and the incision was clean, dry and intact. The patients hospital stay was relatively uneventful and they were deemed stable by the orthopedic team and consultants to be discharged home with on 09/14/18. Discharge Instructions: Upon discharge the patient may weight bear as tolerates through their operative extremity. They were instructed to keep the incision clean and dry at all times. The patient may shower but should not submerge the incision, avoid bathing, pools and hot tubes. The patient was given a script for pain medication and should take as instructed. The patient was given a script for DVT ppx 325mg EC aspirin and should take as directed. The patient was instructed to not drive or travel for long distances until cleared to do so. If the patient develops any symptoms of fevers, chills, nausea, vomiting, increased redness, swelling, pain or drainage from the surgical site, they should notify the office and/or proceed to the nearest emergency room. The patient should follow up in 10-14 days after surgery for their routine post-operative follow-up appointment and should call the office to confirm the date and time. Postop day 1 status post right anterior total hip arthroplasty -Ancef x24 -DVT prophylaxis: SCDs, teds, ASA twice daily -Weight-bear as tolerated right lower extremity -PT/OT -A.m. labs as noted above -DC planning: Home with home health Patient seen and examined, agree with above assessment in plan. Total Time Total Time Spent Total Time Spent (In Minutes): >60 minutes Total Time Includes: Examination of the Patient, Discharge Planning, Medication Reconciliation and Communication With Other Providers Discharge Plan Discharge Items Patient Disposition: Home - Home Health Services Reason For Visit: Unilateral Primary Osteoarthritis, Right Hip Discharge Diagnosis: Right anterior total hip replacement Condition: Good Discharge Goals: Decrease discomfort, Improve function, Increase independence and Therapeutic intervention Activity: Per 'Additional Instructions' section Lifting: Wait until after follow-up appointment Bathing Comment: No bathing, pools or hot tubs Sexual Activity: Wait until after follow-up appointment Exercise/Sports: Wait until after follow-up appointment Driving/Machine Use Comment: No driving till cleared by your surgeon Weightbearing: Right weightbearing Non-emergency contact: Primary Care Provider and Surgeon Call non-emergency contact if: you have any medication questions, your symptoms worsen, your pain is not controlled, your pain is worsening, your pain is unusual for you, your pain is concerning for you, you have a fever, your temperature is above 101, your wound has increased redness, your wound has increased drainage and your wound pain has increased Follow-up/Referrals: Haily Garcia, [Primary Care Provider] - Diet: Regular Addtl Provider Instructions: ACTIVITY RECOMMENDATIONS: SELF CARE INSTRUCTIONS AFTER TOTAL HIP REPLACEMENT : Direct Anterior Approach Until the incision and soft tissues around your hip have healed, there is a possibility that the hip prosthesis could dislocate. A. Hip flexion ( Up & Down out of chair or steps ) may be difficult. This is normal. B. Numbness in front of the thigh is also normal for a few weeks. C. Use hand rails when walking on stairs. D. Wear low heeled shoes with non-slip soles. E. Be sure that your floors are free of things that could trip you - throw rugs, electrical cords, small objects. Avoid wet and waxed floors, especially with crutches and canes. F. Try to walk several times a day with rest periods between. G. Continue with all the exercises taught to you in the hospital. Again, make walking a part of your daily routine. SPECIAL CARE INSTRUCTIONS: VERY IMPORTANT TO READ AND REVIEW A. You may still be at risk for phlebitis and blood clots. 1. Wear surgical stockings (TRI hose) for 2 weeks after surgery to improve circulation and reduce swelling. 2. Take Aspirin 325mg twice daily for 4 weeks or as directed by your doctor. This is your blood thinner. 3. High risk patients may be prescribed a stronger blood thinner if necessary. 4. If you are on Coumadin normally, your family doctor/brassiere cup mold cutter should monitor your blood work. Expect a phone call the day of or the day after bloodwork is drawn to adjust your dosage. B. You must take antibiotics before having dental work, bladder, bowel and other surgery. Your doctor will provide you with a permanent card to carry describing precautions. C. Call [facility] if you have a fever, redness or swelling around the incision, cloudy drainage from incision, or sudden increase in pain in your hip, not relieved by your regular pain medication. D. Please call the office at if you have any concerns or questions about your operation or recovery. * YOU MAY SHOWER, NO TUB BATHS UNTIL CLEARED BY YOUR DOCTOR. - Keep an extra close eye on the top portion of your incision. Be sure to keep clean & dry. * WEAR TRI HOSE 20 HOURS PER DAY FOR 2 WEEKS. * YOU MAY PROGRESS FROM A WALKER, TO A CANE, TO INDEPENDENT AT YOUR OWN PACE. * MOST PATIENTS WILL HAVE HOME NURSING FOR THERAPY. IF YOU DECIDE TO DO OUTPATIENT PHYSICAL THERAPY, PLEASE SCHEDULE THIS 3 TIMES PER WEEK. * DERMABOND Prineo- This is a mesh tape dressing that is covered with glue. It should remain in place until the incision is properly healed, usually 10-14 days. This dressing is designed to naturally slough off. You may trim the excess mesh tape as it peels off. Incision may be briefly wet in a shower. Dry immediately by blotting with a clean, dry towel. Do not bath or swim until instructed by your doctor. Do not scratch, rub, or pick at the dressing. Do not apply any topical ointments or lotions until dressing is completely removed and/or instructed by your doctor. There may be a small piece of suture material at one end of your incision. Do not pull or trim this. If it is bothersome or catching on clothing, you may cover it with a band-aid. *PREVENA incisional vac is a special dressing covering your incision. This dressing provides a sterile dry environment while you are healing. The dressing is to be left in place for 7 days post-operatively. Your home nurse or surgeon will remove. If you develop any redness or blisters or have any questions notify your surgeon immediately. FOLLOW UP VISIT: If appointment is not already scheduled: Please call [facility] to make a follow-up appointment for 2 weeks after your surgery at . Prescriptions: New acetaminophen [Tylenol Extra Strength] 500 mg Tablet 1,000 mg PO Q8 14 Days Qty: 84 RF: 0 aspirin 325 mg Tablet,Delayed Release (Dr/Ec) 325 mg PO BID 30 Days Qty: 60 RF: 0 sennosides [Senokot] 8.6 mg Tablet 17.2 mg PO HS Qty: 30 RF: 0 oxycodone 5 mg Tablet 5 - 10 mg PO Q6H PRN (Reason: pain) Qty: 30 RF: 0 Continued alendronate 70 mg Tablet 70 mg PO WK RF: 0 fluoxetine 10 mg Tablet 10 mg PO QAM RF: 0 fexofenadine [Rita Allergy] 180 mg Tablet 180 mg PO QAM RF: 0 simvastatin 40 mg Tablet 40 mg PO PM RF: 0 multivitamin Capsule 1 cap PO QAM RF: 0 calcium carbonate-vitamin D3 [Calcium 500 + D] 500 mg(1,250mg) -200 unit Tablet 1 tab PO QAM RF: 0 Discontinued naproxen sodium 550 mg Tablet 550 mg PO QAM RF: 0 Stand-Alone Forms: RECOMBINETICS, Opioid Pain Management Krames/Other Patient Handouts: Surgery Prevent DVT After, ED Stockings Tri Discharge Orders: Discharge Order (Routine); Ordered 09/14/18 Ordered By: Raoul Taylor Admission Data Admit Date/Time: 09/13/18 09:01 Attending Provider: Raoul Taylor Admit Provider: Raoul Taylor Primary Care Provider: Haily Garcia Service: Surgical Services Other Interventions: Discharge Summary Assessment (RN) Last Done: 09/14/18 11:54 DC Date/Time DO NOT enter until pt leaves facility: 09/14/18 14:10
== END 2018-09-14 14:10 | disposition home health service (06) | DRG 470 ==
LOC: ASU 04:54 → 3E 09:01

== ENCOUNTER 2022-05-05 05:36 | Observation (INO) ==
--- NOTE | 2022-04-14 16:13 | PAT Medication Instructions ---
Medication Instructions Date of Service April 14, 2022 Home Medications Medication Instructions Recorded Goevanny Nicholson #1 ea 02/19/22 amoxicillin 500 mg tablet 2,000 mg PO ONCE PRN prophylaxis 02/19/22 #4 tabs fluoxetine 10 mg tablet 10 mg PO QAM simvastatin 40 mg tablet 40 mg PO PM Geovanny Nicholson amoxicillin 500 mg tablet 2,000 mg PO ONCE PRN acetaminophen 650 mg tablet 650 mg PO QID PRN Continue as directed amoxicillin 500 mg tablet 2,000 mg PO ONCE PRN(if needed) Take morning of surgery With a small sip of water, OTHERWISE NOTHING TO EAT OR DRINK AFTER MIDNIGHT: fluoxetine 10 mg tablet 10 mg PO QAM acetaminophen 650 mg tablet 650 mg PO QID PRN(if needed) Take evening before surgery simvastatin 40 mg tablet 40 mg PO PM acetaminophen 650 mg tablet 650 mg PO QID PRN(if needed) Other Notes If you have any questions please call us at [phone] or [phone] or [phone] or [phone]
--- NOTE | 2022-04-18 11:32 | Anesthesiology Consultation ---
Date of Service April 18, 2022 Assessment & Plan (1) Encounter for pre-operative examination: - COVID screening: Per assessment on 04/18: No known COVID-19 positive contacts or current COVID-19 related symptoms. Travel screen negative. Patient vaccinated. At surgeon discretion if preop Covid testing being done. - S/P Right EMMA (09/13/18): SAB at L3/4 (x1 attempt) at [facility]. No issues noted per post-op anesthesia progress note. - Outpatient joint assessment: Pt currently scheduled for inpatient pathway. If surgeon requests review for outpatient joint pathway, patient is not recommended candidate for outpatient joint program from anesthesia standpoint. Chart Review Chart Review: Acceptable Risk for Surgery and Patient seen in Pre Admission Testing Teaching & Discussion Pre-Anesthesia Teaching/Discussion Notes: Instructed NPO after midnight before surgery,except medications with 15 cc of water. Medication instructions provided according to the PAT guidelines. History Surgery Operation Date: 05/05/22 07:00 Proposed Procedures p Left Anterior Total Hip Arthroplasty - Pierre Zhou, Height/Weight Height: 4 ft 11 in Weight: 55.6 kg Allergies Allergy/AdvReac Type Severity Reaction Status Date / Time No Known Allergies Allergy Verified 04/14/22 08:52 Medications Home Medications Medication Instructions Recorded Confirmed Last Taken fluoxetine 10 mg tablet 10 mg PO QAM 08/27/18 04/14/22 09/11/18 08:00 simvastatin 40 mg tablet 40 mg PO PM 08/27/18 04/14/22 09/12/18 21:00 Wheeled Walker #1 ea 02/19/22 02/19/22 Unknown amoxicillin 500 mg tablet 2,000 mg PO ONCE PRN prophylaxis 02/19/22 04/14/22 Unknown #4 tabs acetaminophen 650 mg tablet 650 mg PO QID PRN Pain 04/14/22 04/14/22 Unknown Past Medical History Medical History Anxiety Chronic allergic rhinitis Depression Environmental and seasonal allergies History of skin cancer Basal Cell - Lip Hyperlipidemia Osteoarthritis Prediabetes Exercise / Class Metabolic Activity III < 4 Walking/Shop/Light housework (one FS (no CP, + occasional SOB)) Past Family History Family History Other No family history of adverse response to anesthesia Past Surgical History Surgical History History of carpal tunnel release RT History of cataract extraction with lens replacement B/L History of colonoscopy History of total right hip replacement Right [facility] (09/13/18): SAB at L3/4 (x1 attempt) at [facility]. No issues noted per post-op anesthesia progress note. Hx of hemorrhoidectomy Past Anesthesia History No Hx of Anesthesia Complications and No Family Hx of Anesthesia Complications History of PONV No Hx of PONV and No Hx of Motion Sickness Social History Smoking Status: Never smoker Do You Dip or Chew Tobacco: No Hx Alcohol Use: No Hx Substance Use: No substance use type: does not use Review of Systems Patient denies chest pain, shortness of breath, fever, chills, cough, wheezing, palpitations. Physical Exam Vital Signs VITALS BP 132/72 P 90 TEMP 97.9 SP02 95%RA RESP 16 PHYSICAL Full cervical extension range of motion. Full TMJ range of motion. TMD 3.5 finger breaths Mallampati Score 2 Dentition: intact, + crowns Lungs: clear throughout to auscultation Cardiac: regular rate and rhythm, no murmurs noted Spine: normal Carotid arteries: negative bruit Extremities: no edema Lab Results Anesthesia Preop Results Results Anesthesia Widget: WBC 6.60 K/ul (4.8-10.8) 04/18/22 Hgb 14.4 g/dl (12.0-16.0) 04/18/22 Hct 43.0 % (34.1-44.9) 04/18/22 Plt 178 K/uL (130-400) 04/18/22 Na 140 mmol/L (136-145) 04/18/22 K 3.8 mmol/L (3.5-5.1) 04/18/22 Cl 105 mmol/L (98-107) 04/18/22 CO2 32 mmol/L (21-32) 04/18/22 BUN 15 mg/dl (6-23) 04/18/22 Creat 0.77 mg/dl (0.6-1.2) 04/18/22 Glucose Level 148 mg/dl (70-99(Fasting)) H 04/18/22 PT 10.8 Seconds (9.0-12.0) 04/18/22 PTT 24.6 Seconds (21.0-31.0) 04/18/22 INR 1.0 (0.9-1.1) 04/18/22 Blood Type B Negative 04/18/22 Antibody Screen NEGATIVE 04/18/22 Testing Electrocardiogram Date: 04/18/22 SR with frequent PACs at 81bpm. Otherwise normal ECG. Chest X-Ray Date: 04/18/22 FINDINGS: Lung volumes are normal. Lungs are clear. There is no pneumothorax or pleural effusion. Cardiac size is normal. Mediastinal contours are normal. A round density projecting over the right posterior costophrenic angle is unchanged since prior exam. This is likely benign. This could reflect a Bochdalek hernia. There is no evidence for pulmonary edema. IMPRESSION: No acute cardiopulmonary findings. No change in appearance of the chest. COVID-19 Risk Screen Screening Information COVID-19 Screen Date: 04/18/22 Exposure 21 Days Family/Household +COVID Last 21 Days: No Exposure 10 Days Any COVID Exposure Last 10 Days: No Symptoms Last 10 Days Experienced COVID Sx Last 10 Days: No + COVID 0-90 Days COVID + in Last 0-90 Days: No
--- NOTE | 2022-05-01 07:29 | History & Physical Report ---
Date of Service May 01, 2022 Assessment & Plan (1) Degenerative joint disease (DJD) of hip: We will proceed with a left anterior total of arthroplasty. Postoperatively she will be started on aspirin for DVT prophylaxis and kept overnight in the hospital for postoperative medical management. She plans to have the hospital set up home health for discharge. History of Present Illness Chief Complaint: Osteoarthritis of the left hip. Primary Care Provider: Haily Garcia DO Arline is a pleasant 76-year-old female who had a right hip replacement done by Dr. Taylor about 2 years ago. She did very well with that. Unfortunately, she has been dealing with chronic worsening osteoarthritis of her left hip. X-rays have shown advanced osteoarthritis. After failing conservative treatment, she has elected to proceed with a left anterior total hip arthroplasty. Allergies Allergy/AdvReac Type Severity Reaction Status Date / Time No Known Allergies Allergy Verified 04/14/22 08:52 Home Medications Medication Instructions Recorded Confirmed Type fluoxetine 10 mg tablet 10 mg PO QAM 08/27/18 04/14/22 History simvastatin 40 mg tablet 40 mg PO PM 08/27/18 04/14/22 History Wheeled Walker #1 ea 02/19/22 02/19/22 Rx amoxicillin 500 mg tablet 2,000 mg PO ONCE PRN prophylaxis 02/19/22 04/14/22 Rx #4 tabs acetaminophen 650 mg tablet 650 mg PO QID PRN Pain 04/14/22 04/14/22 History Past Med/Surg History Medical History Anxiety Chronic allergic rhinitis Depression Environmental and seasonal allergies History of skin cancer Basal Cell - Lip Hyperlipidemia Osteoarthritis Prediabetes Surgical History History of carpal tunnel release RT History of cataract extraction with lens replacement B/L History of colonoscopy History of total right hip replacement Right [facility] (09/13/18): SAB at L3/4 (x1 attempt) at [facility]. No issues noted per post-op anesthesia progress note. Hx of hemorrhoidectomy Family History Other No family history of adverse response to anesthesia Social History Smoking Status: Never smoker Second Hand Exposure: No; Hx Alcohol Use: No Hx Substance Use: No Preferred Language: Taiwanese Communication Ability: Effective Personnel Manager Required: No Beliefs That Will Affect Care: None marital status: Current Living Situation: Spouse Feels Safe at Home: Yes Assistive Devices: Glasses Review of Systems All systems reviewed & are unremarkable except as noted in HPI & below. Physical Exam On physical examination of left hip, she has decreased range of motion. She has pain with forced internal and external rotation. All of her pain is located in the groin. Constitutional WD/WN, vitals as above Eyes PERRL, conjunctivae normal, anicteric sclerae ENMT external ear and nose normal, oropharynx normal Neck trachea midline, no thyromegaly Respiratory normal respiratory effort, lungs clear to auscultation Cardiovascular RRR, no murmur, no edema Gastrointestinal (Abdomen) normal bowel sounds, soft, nontender, no hepatosplenomegaly Skin no rashes, warm and dry Psychiatric A+Ox3, euthymic affect Results & Data Results & Data Laboratory Results . Diagnostic Findings X-rays of the left hip shows advanced osteoarthritis with joint space narrowing, osteophyte formation, and [id number] articulation.. PG Care Time/CCT Total # of Minutes Spent Total Time Spent with Patient: Total time spent is greater than 50% in coordination of care (as documented) at patient's floor/unit and/or counseling patient: Coding Level of Care Code None Diagnoses Degenerative joint disease (DJD) of hip M16.9
[2022-05-05] MEDS ORDERED: Ketorolac (*for OR use only*) 30 MG, dexAMETHasone 4 MG, KETAMINE HCL (**OR use only) 1... INFIL SCH (06:00)
[2022-05-05] MEDS ORDERED: TRANEXAMIC ACID 1,000 MG **IV Pre-op IV SCH (06:00)
[2022-05-05] MEDS ORDERED: GABAPENTIN 300 MG CAP PO SCH (06:00)
[2022-05-05] MEDS ORDERED: LR 60ML/HR IV SCH (06:00)
[2022-05-05] MEDS ORDERED: dexAMETHasone 4 MG TAB PO SCH (06:00)
[2022-05-05] MEDS ORDERED: ceFAZolin 2000MG 2,000 MG/15 ML SYR IV SCH (06:00)
[2022-05-05] MEDS ORDERED: LR 500ML BOLUS, THEN 15ML/HR IV SCH (06:00)
[2022-05-05] MEDS ORDERED: TRANEXAMIC ACID 1,000 MG **IV Intra-op IV SCH (06:00)
[2022-05-05] MEDS ORDERED: ACETAMINOPHEN 500 MG TAB PO SCH (06:00)
[2022-05-05] MEDS ORDERED: BUPIVACAINE 0.5 % 5 MG/1 ML PF 10ML VIAL ONE (06:33)
--- NOTE | 2022-05-05 06:38 | History & Physical Bridge Note ---
Date of Service May 05, 2022 History & Physical Bridge Note I have examined the patient, reviewed the History & Physical and in the interval since the performance of the History & Physical I have noted the following changes of clinical significance: no changes noted
[2022-05-05] MEDS ORDERED: MIDAZOLAM HCL 1 MG/ML 2ML VIAL ONE (06:57)
[2022-05-05] MEDS ORDERED: PROPOFOL IV EMULSION 10 MG/ML 20 ML VIAL IV ONE (06:57)
[2022-05-05] MEDS ORDERED: fentaNYL citrate 100 MCG/2 ML VIAL ONE (06:57)
[2022-05-05] MEDS ORDERED: ORTHO JOINT ANESTHETIC ONE (07:06)
[2022-05-05] MEDS ORDERED: ONDANSETRON INJ 2 MG/ML 2 ML VIAL IV PRN ×2 (07:32→10:56)
[2022-05-05] MEDS ORDERED: ATROPINE SULFATE 0.1 MG/ML 10ML SYR IV PRN (07:32)
[2022-05-05] MEDS ORDERED: fentaNYL citrate 100 MCG/2 ML VIAL IV PRN (07:32)
[2022-05-05] MEDS ORDERED: ePHEDrine sulfate 50 MG/ML AMP IV PRN (07:32)
[2022-05-05] MEDS ORDERED: ePHEDrine sulfate 50 MG/ML AMP ONE (09:01)
[2022-05-05] MEDS ORDERED: DEXAMETHASONE SOD INJ 4 MG/ML VIAL ONE (09:01)
--- NOTE | 2022-05-05 09:49 | Operative Report ---
PG Post Operative Report Pre & Post Diagnosis Operation Date: 05/05/22 08:10 Pre-Op Diagnosis: DJD Left Hip Post-Op Diagnosis: DJD Left Hip I identified the patient and participated in the time-out.: Yes Procedure Operation Date: 05/05/22 08:10 Actual Procedures p Left Anterior Total Hip Arthroplasty(Left) - Pierre Zhou DO Surgeon Pierre Zhou DO Manager Administrative Services Pineda Boyd PA-C Estimated Blood Loss 300 Findings Consistent with Post-Op Diagnosis Specimens Left femoral head Description of Procedure Implants used I used a ZimmerBiomet total hip arthroplasty system with a size 3 standard offset Avenir Complete stem, a 48 mm G7 cup with a 25mm screw, an E1 polyethylene liner, a 32 mm ceramic head with a 0 neck. Arline arrived at the hospital for the above procedure. She was seen in the preoperative holding area and the operative extremity was identified and signed. She was given a spinal anesthetic, a preoperative antibiotic, and TXA. She was then taken back to the operating room and laid on the table in the supine position. She was given basic sedation. The operative leg was secured to a Puristst leg positioner. The hip was then prepped and draped in sterile fashion. A timeout was done and the patient and the operative extremity was properly identified. An anterior approach was used. Dissection was taken down through the fascia and the tensor muscle belly was retracted laterally and the rectus was retracted medially. The circumflex vessels were identified and ligated. The capsule was then incised and tagged for later repair. The femoral neck was then cut and the femoral head was removed. The acetabulum was exposed. Time was spent doing a complete circumferential labral release. Sequential reaming of the acetabulum up to a size 47 reamer was done. Final reamings were done under fluoroscopy to ensure appropriate version. A Biomet 48 mm G7 cup was then impacted into place. A single 25 mm screw was placed. The E1 polyethylene liner was then snapped into place. Surrounding soft tissues were then injected with 100 cc of an orthopedic pain control cocktail. The proximal femur was then exposed. Sequential broaching up to a size 3 broach was done. Off that broach a size 32 head with a 0 neck was trialed. The hip was reduced and fluoroscopic images showed anatomic alignment of the implants in acceptable length. The broach was removed. The final size 3 standard offset Avenir Complete stem was then impacted into place. A ceramic 32 mm head with a 0 neck was then impacted onto the stem and the hip was reduced. Final fluoroscopic images showed anatomic alignment of the hip. The capsule was then closed with #1 Vicryl suture. A dilute betadyne lavage was then done for 3 minutes. The joint was then irrigated with normal saline solution. The fascia was closed with #1 PDS suture. Skin was closed with 2-0 Vicryl, laura, and a Silverlon dressing. She was then transferred to a hospital bed and taken to the post anesthesia care unit in stable condition. She tolerated the procedure well. Pierre Ty PA-C, was present for the entire procedure. He was critical for patient positioning, prepping, draping, retraction exposure, wound closure and application of sterile dressing. I attest to the content of the Intraoperative Record and any orders documented therein. Any exceptions are noted below.
--- NOTE | 2022-05-05 10:14 | Fluoroscopy Report ---
FL hip LT 1V CLINICAL HISTORY: LEFT ANTERIOR HIP TECHNIQUE: 1 views were obtained with the C-arm in the OR with the above procedure. Total fluoroscopy time was 10.7 seconds. Radiation dose was 1.87 mGy. Comparison: Comparison is made to hip radiograph 02/19/2022 FINDINGS/IMPRESSION: Intraoperative images were obtained of left total hip arthroplasty. Please correlate with intraoperative fluoroscopy and operative report. ACT 112: Negative or not required by law. Electronically signed by: Damaso Denise M.D. 05/05/2022 10:13 AM
--- NOTE | 2022-05-05 10:33 | XRay Report ---
XR hip 1V LT w pelvis CLINICAL HISTORY: IN PACU - Post Surgical TECHNIQUE: 1 views of the left hip and single frontal view of the pelvis were obtained. Comparison: Comparison is made to hip radiograph 09/13/2018 FINDINGS: Patient is status post total hip arthroplasty with expected postsurgical changes including soft tissu e swelling and subcutaneous emphysema. Unchanged appearance of right total hip arthroplasty. IMPRESSION: Expected postoperative appearance status post placement of total hip arthroplasty. ACT 112: Negative or not required by law. Electronically signed by: Damaso Denise M.D. 05/05/2022 10:31 AM
[2022-05-05] MEDS ORDERED: NON-FORMULARY MEDICATION (Acetaminophen 650 mg Tablet) PO PRN (10:56)
[2022-05-05] MEDS ORDERED: METOCLOPRAMIDE HCL INJ 5 MG/ML 2 ML VIAL IV PRN (10:56)
[2022-05-05] MEDS ORDERED: NALOXONE HCL 0.4 MG/1 ML VIAL/CARP IV PRN (10:56)
[2022-05-05] MEDS ORDERED: MAGNESIUM HYDROXIDE SUSP 30 ML UDC PO PRN (10:56)
[2022-05-05] MEDS ORDERED: bisacodyL 10 MG SUPP PR PRN (10:56)
[2022-05-05] MEDS: SODIUM CHLORIDE 0.9% 1000ML 1,000 ML IV SCH ×2 (11:24→20:16)
[2022-05-05] MEDS: KETOROLAC TROMETHAMINE 15 MG/ML VIAL IV SCH ×3 (11:57→23:39)
--- NOTE | 2022-05-05 12:35 | Anesthesiology Progress Note ---
Date of Service May 05, 2022 Anesthesia Post Procedure Vital Signs Vital Signs: Temp Pulse Pulse Pulse Resp BP BP 05/05/22 11:50 36.2 C L 73 16 118/57 L 05/05/22 11:20 36.4 C L 88 16 114/64 05/05/22 10:50 36.3 C L 88 16 100/64 05/05/22 10:40 36.4 C L 71 18 115/63 05/05/22 10:30 71 14 112/65 05/05/22 10:20 73 10 L 114/62 05/05/22 10:10 77 15 124/63 05/05/22 10:04 36.0 C L 77 15 116/59 L 05/05/22 06:00 36.6 C 77 18 139/65 Pulse Ox O2 Del Method O2 Flow Rate 05/05/22 11:50 98 Nasal Cannula 2 05/05/22 11:20 98 Nasal Cannula 2 05/05/22 10:50 98 Nasal Cannula 2 05/05/22 10:40 99 Nasal Cannula 2 05/05/22 10:30 98 Nasal Cannula 3 05/05/22 10:20 98 Nasal Cannula 3 05/05/22 10:10 99 Nasal Cannula 4 05/05/22 10:04 98 Nasal Cannula 4 05/05/22 06:00 92 Room Air Transfer of Care Handoff Completed per policy Notes Mental Status: alert / awake / arousable Patient Amnestic to Procedure: Yes Nausea / Vomiting: adequately controlled Pain: adequately controlled Airway Patency, RR, SpO2: stable & adequate BP & HR: stable & adequate Hydration State: stable & adequate Neuraxial Anesthesia: was administered and sensory block is resolving Anesthetic Complications: no major complications apparent and Pt Satisfied with anesthetic care
[2022-05-05] MEDS: ceFAZolin 2000MG 2,000 MG/15 ML SYR IV SCH ×2 (16:18→23:36)
[2022-05-05] MEDS: oxyCODONE HCL IR 5 MG TAB (IMMEDIATE RELEASE) PO PRN ×2 (17:03→23:36)
[2022-05-05] MEDS: DOCUSATE SODIUM 100 MG CAP PO SCH (20:12)
[2022-05-05] MEDS ORDERED: SENNA 8.6 MG TAB PO SCH (21:00)
[2022-05-05] MEDS ORDERED: SIMVASTATIN 40 MG TAB PO SCH (21:00)
[2022-05-06] MEDS: KETOROLAC TROMETHAMINE 15 MG/ML VIAL IV SCH (06:34)
[2022-05-06] MEDS: oxyCODONE HCL IR 5 MG TAB (IMMEDIATE RELEASE) PO PRN (06:38)
--- NOTE | 2022-05-06 07:15 | Orthopedic Progress Note ---
Date of Service May 06, 2022 Assessment & Plan (1) Status post left hip replacement: Overall she is doing fairly well. She is having some soreness in the left hip. She will be seen by physical therapy today for ambulation and range of motion exercises. If she is doing well she will be discharged home. She is on aspirin for DVT prophylaxis. She will follow-up with orthopedics in 2 weeks. Tanya Nunn was seen and examined at bedside this morning. Overall she is doing very well. She is having some soreness in the left hip. She has been up and ambulating to the bathroom. She has no other complaints.. Review of Systems All systems reviewed & are unremarkable except as noted in HPI & below. Physical Exam On physical examination of the left hip, the dressing is clean and dry. Her leg is out to full extension. She has active dorsiflexion and plantarflexion of her left ankle.. Results & Data Results & Data Laboratory Results . Diagnostic Findings Postoperative x-rays of the left hip show the prosthesis to be in anatomic alignment without any evidence of fracture, dislocation, or loosening.. PG Care Time/CCT Total # of Minutes Spent Total Time Spent with Patient: Total time spent is greater than 50% in coordination of care (as documented) at patient's floor/unit and/or counseling patient: Coding Level of Care Code 71882 Post Operative Follow-Up Diagnoses Status post left hip replacement Z96.642
--- NOTE | 2022-05-06 07:16 | Discharge Summary ---
Date of Service May 06, 2022 Admission HPI (Per Admitting) Arline is a pleasant 76-year-old female who had a right hip replacement done by Dr. Taylor about 2 years ago. She did very well with that. Unfortunately, she has been dealing with chronic worsening osteoarthritis of her left hip. X-rays have shown advanced osteoarthritis. After failing conservative treatment, she has elected to proceed with a left anterior total hip arthroplasty. Admission Exam (Per Admitting) On physical examination of left hip, she has decreased range of motion. She has pain with forced internal and external rotation. All of her pain is located in the groin. Principal Diagnosis Same as "Discharge Diagnosis" noted below under Discharge Instructions. Discharge Exam On physical examination of the left hip, the dressing is clean and dry. Her leg is out to full extension. She has active dorsiflexion and plantarflexion of her left ankle.. Discharge Data Procedures Performed Operation Date: 05/05/22 08:10 Actual Procedures p Left Anterior Total Hip Arthroplasty(Left) - Pierre Zhou DO Ordered Studies 05/05/22 08:10 FL hip LT 1V Routine Hospital Course (1) Status post left hip replacement: On May 05, 2022 Arline arrived to [facility] and underwent a left hip replacement without complication. She had a spinal anesthetic. Postoperatively she was started on aspirin for DVT prophylaxis and transferred to the general orthopedic floors. Her hospital course was uneventful. On postop day #1, her vital signs were stable and her pain was well controlled. She was able to participate well with physical therapy doing ambulation and range of motion exercises. She was then discharged home. She will follow-up with orthopedics in 2 weeks. PG Care Time/CCT Total # of Minutes Spent Total Time Spent with Patient: Total time spent is greater than 50% in coordination of care (as documented) at patient's floor/unit and/or counseling patient: Discharge Plan Discharge Items Patient Disposition: Home - Home Health Services Reason For Visit: DJD Left Hip Discharge Diagnosis: Left hip replacement Activity: Per Instructions section Non-emergency contact: Surgeon Call non-emergency contact if: your wound has increased redness and your wound has increased drainage Follow-up/Referrals: Haily Garcia DO [Primary Care Provider] - Diet: Regular Addtl Attending Provider Instructions: Activity and Therapy Recommendations: * If you are using [facility] then therapy will be provided at your home until they feel you have accomplished all of your goals. * If you are using [facility] then Physical Therapy will be provided until they feel you are ready to start Outpatient Physical Therapy. * If you are not using home therapy then Outpatient Physical Therapy should start about 3-5 days from your day of surgery. Therapy will last about 6-10 weeks * You were shown a series of exercises in the hospital. Do these exercises three times each day including the exercises you were shown in physical therapy. * Get up and walk several times each day.~ For the first four weeks, try not to stand or walk for more than one hour at a time. If you do stand or walk for more than one hour, you will not hurt anything, but your leg will likely swell.~~ * As you feel comfortable, you may change from the walker or crutches to a cane and~then to independent walking. Medications: * Narcotic You will likely be sent home from the hospital with a prescription for the narcotic pain medication that worked best throughout your stay. * Aspirin Most patients will be required to take Aspirin 81mg twice a day for 6 weeks after surgery. This is obtained [id number] and a prescription is not necessary. * Other medications may be prescribed for specific circumstances. If you have any questions, please call the office at . * Resume previous home medications unless otherwise instructed TEDs/Elastic Stockings: The white elastic stockings help limit swelling and prevent blood clots from forming in your legs. The more you wear them, the more they work. Wear them for six weeks. Dressing Care: Leave the Silverlon dressing in place for 7 days. After 7 days you may remove the dressing. If the incision is not draining then you may leave the laura open to air. If there is a little bit of drainage or if the laura are getting stuck on your clothing then cover the incision with a dry dressing. The laura will be removed at your 2 week follow-up appointment. Showering: You may shower with the Silverlon dressing in place. Do not let the shower spray hit the dressing directly. Pat the Silverlon dressing dry. If the dressing becomes wet underneath, then simply remove the dressing. Keep the incision dry until you are 7 days out from the day of surgery. After 7 days you may remove the Silverlon dressing and shower with the laura exposed. Let soapy water run over the laura and pat them dry. Do not scrub or soak the incision. Things To Watch For: * Drainage from the incision site that occurs more than one week after your surgery. * Increased redness at the incision site. * Fever above 102 degrees Fahrenheit. * Unusual chest pain or shortness of breath. * Call [facility] at with any of the above problems Follow-Up Visit: Follow-up with Dr. Zhou's PA (Pierre Ty) 2-3 weeks after your day of surgery. He will remove your laura and answer any questions. If you have any additional questions or concerns, Dr Zhou is usually in the office at the same time and will be available An appointment was probably scheduled when you signed-up for surgery in the office. If you have any questions call Office Instructions: More detailed instructions as well as Frequently Asked Questions were provided in a folder by our office when you signed-up for surgery. Please review these instructions when you get home. If you have any further questions or concerns, please feel free to call the office at [phone] Pending Studies at Discharge: No Stand-Alone Forms: [facility], Smoking Cessation Medications and DC Order Prescriptions: New aspirin 81 mg Tablet,Delayed Release (Dr/Ec) 81 mg PO BID 42 Days Qty: 84 0RF oxycodone-acetaminophen 5-325 mg tablet 1 tab PO Q6H PRN (Reason: pain) Qty: 30 0RF Continued amoxicillin 500 mg tablet 2,000 mg PO ONCE PRN (Reason: prophylaxis) Qty: 4 2RF Rx Instructions: ONE HOUR PRIOR TO DENTAL PROCEDURE (DME) Geovanny Nicholson [facility] See Rx Instructions .MEDSUPPLY Qty: 1 0RF Rx Instructions: As directed fluoxetine 10 mg Tablet 10 mg PO QAM simvastatin 40 mg Tablet 40 mg PO PM acetaminophen 650 mg Tablet 650 mg PO QID PRN (Reason: Pain) Discharge Orders: Discharge Order (Routine); Ordered 05/06/22 Ordered By: Pierre Zhou Admission Data Admit Date/Time: 05/05/22 10:11 Attending Provider: Pierre Zhou Admit Provider: Gamaliel Boyd Primary Care Provider: Haily Garcia
[2022-05-06] MEDS ORDERED: dexAMETHasone 4 MG TAB PO SCH (08:00)
[2022-05-06] MEDS ORDERED: MULTIVITAMIN TAB PO SCH (09:00)
[2022-05-06] MEDS ORDERED: FLUoxetine HCL 10 MG CAP PO SCH (09:00)
[2022-05-06] MEDS ORDERED: ASPIRIN 81 MG ECTAB PO SCH (09:00)
[2022-05-06] MEDS: DOCUSATE SODIUM 100 MG CAP PO SCH (09:08)
== END 2022-05-06 12:06 | disposition home health service (06) ==
LOC: ASU 05:36 → 3E 05:36